=== PATIENT | male | born 1980 ===

== ENCOUNTER 2025-04-03 06:00 | Day surgery (SDC) | payer OTHER ==
[2025-03-27 08:26] LABS: URINE APPEARANCE Clear; URINE BILIRRUBIN Negative (NEGATIVE); URINE BLOOD Negative; URINE COLOR Yellow; URINE GLUCOSE Negative (NEGATIVE); URINE KETONE Negative (NEGATIVE); URINE LEUKOCYTE Negative; URINE NITRATE Negative; URINE PROTEIN Negative (NEGATIVE); URINE UROBILINOGEN 0.2 E.U./dl
[2025-03-27 08:27] VITALS: BP 130/83
[2025-03-27 08:28] LABS: URINE RBC 6.1 uL (0.0-20.8); URINE WBC 3.9 uL (0.0-23.2)
[2025-03-27 08:33] LABS: BASO % 0.7 % (0.1-1.2); EOS # 0.37 (0.04-0.54); EOS % 4.1 % (0.7-7.0); LYMPH # 2.31 (1.18-3.74); LYMPH % 25.7 % (19.3-53.1); MEAN PLATELET VOLUME 10.50 fl (9.4-12.4); MONO # 0.90 (0.24-0.82); MONO % 10.0 % (4.7-12.5); NEUT # 5.32 (1.56-6.13); NEUT % 59.2 % (34.0-71.1); RED CELL DISTRIBUTION WIDTH 13.5 % (11.6-14.4)
[2025-03-27 08:38] LABS: URINE BACTERIA 3.5 uL (0.0-1933); URINE CAST 0.00 uL (0.0-1.40); URINE EPITHELIAL CELLS 0.6 uL (0.0-38.8)
[2025-03-27 09:02] LABS: INR 0.97
[2025-03-27 09:28] LABS: BUN CREA RATIO 19.0 (7.0-25.0); CREATININE SERUM 0.88 mg/dL (0.70-1.30); GFR 93.65; GLUCOSE FASTING 93.0 mg/dL (65-100); OSMOLALITY SERUM 284.0 MOSM/KG (275-295)
[~2025-04-03] VITALS: Ht 177.8 cm; Wt 95.3 kg
[2025-04-03] MEDS ORDERED: CLINDAMYCIN PHOSPHATE 150 MG/ML (900mg) ONE (06:28)
[2025-04-03] MEDS ORDERED: BUPIVACAINE HCL/MPF 0.5% 30ML VIAL ONE ×2 (07:08→07:51)
[2025-04-03] MEDS ORDERED: EPINEPHRINE HCL/PF 1 MG/ML AMPUL ONE ×2 (07:08→07:51)
[2025-04-03] MEDS ORDERED: POVIDONE-IODINE 118 ML BOTT TOP ONE ×2 (07:08→07:32)
[2025-04-03] MEDS ORDERED: CIPROFLOXACIN2.5 ML OTIC (08:55)
[2025-04-03] MEDS ORDERED: CLEOCIN HCL300 MG PO (08:56)
== END 2025-04-03 11:20 | disposition home or self-care (01) ==
LOC: CIR.AMB 06:00
PROVIDERS: ATTEND Otolaryngology Otology & Neurotology
DX: H80.91 Unspecified otosclerosis, right ear (principal); H90.A11 Conductive hearing loss, unilateral, right ear with restricted hearing on the contralateral side; Z88.0 Allergy status to penicillin